=== PATIENT | male | born 1965 | race Caucasian/White ===

== ENCOUNTER → 2021-07-16 09:49 | Outpatient (BNVA) | payer OTHER, SELFPAY | PROVIDERS: Referring Provider Nurse Practitioner; Visit Provider Podiatrist Foot & Ankle Surgery | DX: M79.671 Pain in right foot (principal) | CPT/HCPCS: 73630 ==

== ENCOUNTER → 2021-08-22 10:28 | Outpatient (BNVA) | payer OTHER, SELFPAY | PROVIDERS: Visit Provider Surgery | DX: K22.70 Barrett's esophagus without dysplasia (principal); Z20.822 Contact with and (suspected) exposure to COVID-19 | CPT/HCPCS: 87635 ==

== ENCOUNTER 2021-08-27 08:21 | Day surgery (SDC) | payer OTHER, SELFPAY ==
[2021-08-22 12:45] VITALS: BMI 28.5
--- NOTE | 2021-08-27 09:10 | ANES.PREANE2 ---
Pre-Anesthetic Assessment Pre-Anesthetic Assessment: Height/Weight: Height 1.93 m Weight 106.594 kg Preop Diagnosis: persistent acid reflux Proposed Procedure: Operation Date: 08/27/21 09:00 Proposed Procedures p EGD 10981 K22.70(Not Applicable) - Lalo Machuca MD Was Beta Moni taken within 24 hours: N/A Was Clonidine taken within 24 hours: N/A Social: Social History: Alcohol and Tobacco Exam: Pre-Anes Outpt Exam: alert, oriented x 3 and regular rate & rhythm Airway: Submandibular: WNL Cervical ROM: WNL MP: 2 Dentition: Chipped Pulmonary: Pulmonary: COPD GI: GI: GERD Metabolic: Metabolic: Morbid obesity Anesthetic Plan: ASA status: 3 Anesthesia: MAC Risk of > 500 ml blood loss (7ml/kg in children): No PFSH Anesthesia PFSH: Family History Other Cancer Denies family history of Diabetes CAD (coronary artery disease) Dementia Psychiatric illness Lung disease Stroke Social History Alcohol intake: current Alcohol intake frequency: 3 or more drinks per day Lives independently: Yes Data Anesthesia Cardiac Studies: No Data to Display
[2021-08-27 09:26] VITALS: BP 156/87; PULSE 58; RESP 18; TEMP 36.2; O2SAT 98
[2021-08-27] MEDS: sodium chloride 0.9% 1,000 ML 30 ML IV (09:30)
--- NOTE | 2021-08-27 09:48 | W.PM.OPSFHP ---
Same Day Surgery H&P Indication for Procedure/HPI DATE OF PROCEDURE: August 27, 2021 CHIEF COMPLAINT/INDICATIONFOR SURGICAL PROCEDURE: Acid reflux PREOP DIAGNOSIS: persistent acid reflux PLANNED PROCEDRUE: Operation Date: 08/27/21 09:00 Proposed Procedures p EGD 43884 K22.70(Not Applicable) - Lalo Machuca MD This is a pleasant 55 years old gentleman with history of persistent acid reflux in spite of receiving 80 mg of omeprazole daily. Patient also receives ibuprofen for musculoskeletal pain. Apparently does not help with his acid reflux. Patient reports that he had history of Rodriguez's esophagitis and last endoscopy was done back and no biopsies were obtained per his description. Patient is referred to my practice for further evaluation and potential intervention in the form of repeat diagnostic EGD as he has been on PPI therapy for many years now 08/27/2021. Patient comes today for diagnostic EGD. ROS All systems have been reviewed negative except as per the above or per problem list. Medications/Allergies* Home Medications Medication Instructions Recorded Confirmed Type omeprazole 40 mg capsule,delayed 20 mg PO BID 07/07/21 08/27/21 History release ibuprofen 2,400 mg PO DAILY 08/27/21 08/27/21 History Allergies/Adverse Reactions Allergy/AdvReac Type Severity Reaction Status Date / Time No Known Allergies Allergy Unverified 07/08/21 12:27 Current Medications: Generic Name Dose Route Start Last Admin Trade Name Garretq PRN Reason Stop Dose Admin Sodium Chloride 1,000 mls @ 30 mls/hr 08/27/21 08:45 08/27/21 09:30 Sodium Chloride 0.9% IV 08/28/21 08:44 30 mls/hr .Q24H SONALI Administration Pertinent History/Comorbid Conditions* Family History (Updated 07/07/21 @ 15:17 by Sammi Marie) Cancer Denies family history of Diabetes CAD (coronary artery disease) Dementia Psychiatric illness Lung disease Stroke Social History Alcohol intake: current Alcohol intake frequency: 3 or more drinks per day Lives independently: Yes Pertinent Exam Findings alert, oriented x 3, clear to auscultation bilaterally, regular rate & rhythm and procedure specific exam findings (Abdominal examination nontender nondistended soft) Recommendations Surgery/Procedure today (EGD with possible biopsy) Coding Level of Care Code Acute Table Games Dual 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
[2021-08-27 10:03] VITALS: BP 126/74; PULSE 66; RESP 16; TEMP 36.4; O2SAT 96
[2021-08-27 10:14] VITALS: BP 122/91; PULSE 63; RESP 18; O2SAT 94
--- NOTE | 2021-08-27 10:39 | ANE.PACU2 ---
Inpatient post-anesthesia follow up: Airway intact: Yes Vital signs: Temperature 97.5 F Pulse Rate 63 Respiratory Rate 18 Blood Pressure 122/91 Pulse Oximetry 94 Oxygen Delivery Me thod Room Air Oxygen Flow Rate 3 Fraction of Inspir ed Oxygen Hydration adequate: Yes Mental status: Baseline
[2021-08-28 05:54] LABS: H. Pylori / CLO Test Negative
== END 2021-08-27 10:30 | disposition home or self-care (01) ==
PROVIDERS: Visit Provider Surgery
PROC: 0DJ08ZZ Inspection of Upper Intestinal Tract, Via Natural or Artificial Opening Endoscopic (ICD-10-PCS; CPT 43235; principal; 2021-08-27 09:00)
DX: K21.9 Gastro-esophageal reflux disease without esophagitis (principal); K29.70 Gastritis, unspecified, without bleeding; J44.9 Chronic obstructive pulmonary disease, unspecified; E66.01 Morbid (severe) obesity due to excess calories; Z68.28 Body mass index [BMI] 28.0-28.9, adult
CPT/HCPCS: 43239; 87077; 96360; J2704; J3490; J7030

== ENCOUNTER → 2022-06-12 08:54 | Outpatient (BNVA) | payer OTHER, SELFPAY | PROVIDERS: Referring Provider Nurse Practitioner; Visit Provider Orthopaedic Surgery | DX: M17.12 Unilateral primary osteoarthritis, left knee (principal) | CPT/HCPCS: 73560; 73565; 99203 ==

== ENCOUNTER 2022-07-28 15:30 | Outpatient (CLI) | payer OTHER, SELFPAY ==
--- NOTE | 2022-07-28 16:00 | CT_ITS ---
WS: [id number] CT LEFT knee, noncontrast. HISTORY: Preop NIKITA robotic total knee replacement. Osteoarthritis. Protocol for NIKITA total knee replacement has been obtained. This includes axial imaging through the s [place] side LEFT hip, LEFT knee and LEFT ankle. Very minimal narrowing of the LEFT hip joint. No destructive bone lesions. No soft tissue abnormality . Mild LEFT knee medial compartment joint space narrowing. Subchondral cystic changes medial tibial juanito teau. No loose body or fracture. Normal alignment of the LEFT ankle. No significant degenerative changes. CT/CT knee LT wo con* [id number] IMPRESSION: CT imaging provided for NIKITA robotic total knee replacement.
== END 2022-07-28 15:31 | disposition home or self-care (01) ==
LOC: RAD 15:31
PROVIDERS: PCP Nurse Practitioner; Visit Provider Orthopaedic Surgery
DX: M17.12 Unilateral primary osteoarthritis, left knee (principal)
CPT/HCPCS: 73700

== ENCOUNTER 2022-08-03 16:37 | Observation (INO) | payer OTHER, SELFPAY ==
[2022-07-21 09:17] VITALS: BMI 31.1
[2022-07-21 09:54] LABS: Basophils % 0.7 %; Eosinophils # 0.1 10^3/uL (0.0-0.8); Eosinophils % 3.3 %; Hemoglobin 14.5 g/dL (11.7-16.6); Lymphocytes # 1.2 10^3/uL (0.8-4.8); Lymphocytes % 28.8 %; Mean Corpuscular HGB Conc 35.4 g/dL (30.0-36.0); Mean Corpuscular Volume 93.4 fl (80-94); Mean Platelet Volume 11.3 fL (7.4-10.4); Monocytes # 0.4 10^3/uL (0.2-0.9); Monocytes % 8.3 %; Neutrophils # 2.47 10^3/uL (1.8-7.7); Neutrophils % 58.4 %; Nucleated Red Blood Cells % 0 %; Platelet Count 168 10^3/cmm (130-400); Red Blood Count 4.39 10^6/uL (4.1-5.3); Red Cell Distribution Width 12.9 % (12.1-15.1); White Blood Count 4.2 10^3/uL (4.0-10.0)
[2022-07-21 10:18] LABS: Anion Gap 13.2 (5-19); Blood Urea Nitrogen 14 mg/dL (6-20); Calcium 9.3 mg/dL (8.5-10.5); Carbon Dioxide 24 mmol/L (22-29); Chloride 100 mmol/L (98-107); Glomerular Filtration Rate 77.6 mL/min (90-130); Glucose 99 mg/dL (65-115); Osmolality Calculated 277 mOsm/kg (285-295); Potassium 4.2 mmol/L (3.5-5.1); Sodium 133 mmol/L (136-145)
--- NOTE | 2022-07-21 15:14 | ANES.PREANE2 ---
Pre-Anesthetic Assessment Height/Weight: Height 1.93 m Weight 116.12 kg Preop Diagnosis: Osteoarthritis Operation Date: 08/03/22 13:40 Proposed Procedures p Left total knee arthroplasty: 90664,M17.12(Left) - Aaron Ferraro MD Familial anesthetic complications: none Was Beta Moni taken within 24 hours: N/A Was Clonidine taken within 24 hours: N/A Social Tobacco and No alcohol Exam alert, oriented x 3, clear to auscultation bilaterally and regular rate & rhythm Airway Submandibular: within normal limits Cervical ROM: within normal limits Mallampati: Class II Dentition: full Comments: Comments: Pulmonary Shortness of Breath CV/HEM None reported None reported Hepatic None reported GI Gastroesophageal Reflux Disease (Well controlled with medications ) Rodriguez's esophagus Metabolic Obesity Musc/skel Osteoarthritis/DJD Neuropsych None reported Anesthetic Plan ASA status: 2 Anesthesia: Anesthesia Evaluation, General and Regional (specify below) (Adductor canal block ) Other: We discussed risk and benefits of general vs spinal anesthesia including DVT risk, infection, paralysis/catastrophic nerve injury, back bruising/pain, PDPH, conversion to general in case of spinal, PONV, sore throat (sometimes severe), corneal abrasion, positioning and peripheral nerve injuries, life threatening allergic reaction, post operative ICU admission requiring prolonged intubation, stroke, heart attack, , post operative delirium and/or post operative cognitive decline, and rare incidences of recall (under general anesthesia). We discussed risk and benefits of nerve block for post op pain control including management of pain and titration of pain medications as signs/symptoms of nerve block wearing off begin to appear and/or prior bed. We discussed risk of failed nerve block, vascular injury or other vital structure injury, abscess/infection, LAST, and nerve injury. Patient wishes to proceed with spinal with adductor canal block for post op pain control. Risk of > 500 ml blood loss (7ml/kg in children): No Medications/Allergies Home Medications Medication Instructions Recorded Confirmed Last Taken Type omeprazole 40 mg capsule,delayed 20 mg PO BID 07/07/21 07/21/22 08/26/21 History release custom molded orthotics #1 ea 07/22/21 06/12/22 Unknown Rx ibuprofen 1,600 mg PO DAILY 08/27/21 07/21/22 08/26/21 09:00 History Custom Molded Orthotics with Boots #1 ea 12/08/21 06/12/22 Unknown Rx cyanocobalamin (vitamin B-12) 1,000 mcg PO DAILY 07/21/22 07/21/22 Unknown History 1,000 mcg tablet (Vitamin B-12) thiamine HCl (vitamin B1) 100 mg 50 mg PO DAILY 07/21/22 07/21/22 Unknown History tablet (Vitamin B-1) Allergies Allergy/AdvReac Type Severity Reaction Status Date / Time No Known Allergies Allergy Verified 07/21/22 09:11 [facility] Anesthesia Medical History Rodriguez's esophagus with esophagitis Family History Other Cancer Denies family history of Diabetes CAD (coronary artery disease) Dementia Psychiatric illness Lung disease Stroke Social History Smoking and tobacco status: current every day smoker Alcohol intake: current Alcohol intake frequency: 3 or more drinks per day Lives independently: Yes Data Anesthesia : 07/21/22 09:30 07/21/22 09:30 Short CBC 07/21/22 Range/Units 09:30 WBC 4.2 (4.0-10.0) 10^3/uL Hgb 14.5 (11.7-16.6) g/dL Hct 41.0 L (42.0-52.0) % MCV 93.4 (80-94) fl Plt Count 168 (130-400) 10^3/cmm Neut % (Auto) 58.4 % Neut # (Auto) 2.47 (1.8-7.7) 10^3/uL BMP 07/21/22 09:30 Sodium 133 L Potassium 4.2 Chloride 100 Carbon Dioxide 24 BUN 14 Creatinine 1.0 Glucose 99 Calcium 9.3 Cardiac Studies: No Data to Display
[2022-08-03] VITALS (16 sets, daily range): BP systolic 137–164; BP diastolic 88–99; PULSE 68–87; RESP 14–21; TEMP 36.3–37.2; O2SAT 91–99; BMI 31.1
[2022-08-03] MEDS: sodium chloride 0.9% 1,000 ML 30 ML IV (10:03)
--- NOTE | 2022-08-03 10:47 | P.ANESUD_ITS ---
Pre-Anesthetic Update Pre-Anesthetic Assessment: Date of Surgery/Procedure: 08/03/22 Preop Kaitlyn gnosis: Osteoarthritis Proposed Procedure: Operation Date: 08/03/22 13:10 Proposed Procedures p Left total knee arthroplasty: 35934,M17.12(Left) - Aaron Ferraro MD Any changes to Pre-Anesthetic Assessment?: No Last Intake: Intake Last Liquid Date 08/02/22 Last Liquid Time 21:30 Last Solid Date 08/02/22 Last Solid Time 18:00 Vitals: Temperature 98.3 F 08/03/22 09:49 Temperature Source Temporal Artery S can 08/03/22 09:49 Pulse Rate 79 08/03/22 09:49 Pulse Rhythm 08/03/22 10:00 Pulse Strength 3+ Normal 08/03/22 10:00 Respiratory Rate 18 08/03/22 09:49 Blood Pressure 164/99 08/03/22 09:49 Blood Pressure Heydi n 120 08/03/22 09:49 Pulse Oximetry 96 08/03/22 09:49 Oxygen Delivery Me thod 08/03/22 10:00 Exam: Pre-Anes Outpt Exam: alert, oriented x 3, clear to auscultation bilaterally and regular rate & rhythm Cardiac Studies: No Data to Display
--- NOTE | 2022-08-03 12:33 | ANES.PROC ---
Anesthesia Procedures Procedure/Date: 08/03/22 Nerve Block ^: Nerve Block 1: Main Anesthesia: general anesthesia Time Out Performed: Yes Consent: requested by attending/covering physician, from patient, risks and benefits reviewed and patient agrees to proceed Nerve block location: adductor canal Anesthesia monitors applied: pulse oximetry and BP cuff Nerve block position: semi sitting Anesthetic Used: ropivicaine 0.5% Amount of anesthesia used (mL): 20 Ultrasound used to: recognize landmarks and visualize and ID femerol nerve Nerve Stimulator Used?: No Interscalene/Femoral BLK: 4 stimuplex 21 g needle used for position and inplane approach, visualize local anesthetic spread and no vascular puncture identified Injection: neg aspiration of heme Patient Tolerated Procedure: well Complications: none Additional Comments: After time out sterile prep, using sterile technique, and using real time US guidance for target selection needle was inserted with real time visualization of needle entry and real time visualization of needle advancement toward intended target. Negative aspiration. LA injected incrementally with negative aspiration every 5 cc and real time US visualization of LA spread throughout procedure. Tolerated well. Image(s) saved.
--- NOTE | 2022-08-03 12:33 | W.PM.OPSFHP ---
Same Day Surgery H&P Indication for Procedure/HPI DATE OF PROCEDURE: August 03, 2022 CHIEF COMPLAINT/INDICATIONFOR SURGICAL PROCEDURE: Osteoarthritis left knee here for left total knee arthroplasty PREOP DIAGNOSIS: Osteoarthritis left knee PLANNED PROCEDURE: Operation Date: 08/03/22 13:10 Proposed Procedures p Left total knee arthroplasty: 45246,M17.12(Left) - Aaron Ferraro MD This is a new 56 year old male patient, he is here today for an evaluation of his left knee pain. He states that he has had pain to his left knee for 4 years now. He states tat he had ankle surgery to his right side and states that his left knee got increasingly worse.? At that time he began to notice pain and popping with nothing was really done.? He states the pain is steadily progressed over the past 4 years.? He states that he has tried a cortisone injection that provided him with mild relief.? He is taking 2400 mg of ibuprofen daily and applying a Voltaren gel rub without help.? He describes severe swelling 6 weeks ago which has not improved but is not completely gone.? He describes the pain worse some days than others.? He has been wearing an flight software test engineer brace and states with that he can perhaps ambulate a block on a good day.? He states without the brace and even with the brace on some days he can scarcely ambulate at all. Medications/Allergies* Home Medications Medication Instructions Recorded Confirmed Type omeprazole 40 mg capsule,delayed 20 mg PO BID 07/07/21 08/03/22 History release ibuprofen 1,600 mg PO DAILY 08/27/21 08/03/22 History cyanocobalamin (vitamin B-12) 1,000 mcg PO DAILY 07/21/22 08/03/22 History 1,000 mcg tablet (Vitamin B-12) thiamine HCl (vitamin B1) 100 mg 50 mg PO DAILY 07/21/22 08/03/22 History tablet (Vitamin B-1) Allergies/Adverse Reactions Allergy/AdvReac Type Severity Reaction Status Date / Time No Known Allergies Allergy Verified 07/21/22 09:11 Current Medications: Generic Name Dose Route Start Last Admin Trade Name Freq PRN Reason Stop Dose Admin Sodium Chloride 1,000 mls @ 30 mls/hr 08/03/22 09:45 08/03/22 10:03 Sodium Chloride 0.9% IV 08/04/22 09:44 30 mls/hr .Q24H SONALI Administration Pertinent History/Comorbid Conditions* Medical History (Updated 06/12/22 @ 09:32 by Aaron Ferraro MD) Rodriguez's esophagus with esophagitis Family History (Updated 07/07/21 @ 15:17 by Sammi Marie) Cancer Denies family history of Diabetes CAD (coronary artery disease) Dementia Psychiatric illness Lung disease Stroke Social History Smoking and tobacco status: current every day smoker Alcohol intake: current Alcohol intake frequency: 3 or more drinks per day Lives independently: Yes Pertinent Exam Findings alert, oriented x 3, clear to auscultation bilaterally, regular rate & rhythm and operative site marked Recommendations Surgery/Procedure today Coding Level of Care Code Acute 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
[2022-08-03] MEDS: CELEcoxib 200 mg Capsule 400 MG PO (12:52)
[2022-08-03] MEDS: acetaminophen 500 mg Tablet 1000 MG PO ×2 (12:52→22:18)
[2022-08-03] MEDS: oxyCODONE 20 mg ER (12 HR) Tablet PO (12:53)
[2022-08-03] MEDS: ceFAZolin 2,000 MG in sodium chloride 0.9% (plus) 50 ML 100 MG IV ×2 (13:19→22:20)
[2022-08-03] MEDS: tranexamic acid 1,000 mg/10mL SDV 1000 MG IV (13:40)
[2022-08-03] MEDS: sodium chloride 0.9% 100 mL Bag XX (14:10)
[2022-08-03] MEDS: ketorolac 30 mg/mL INJ XX (14:13)
[2022-08-03] MEDS: EPINEPHrine 1 mg/mL INJ XX (14:13)
[2022-08-03] MEDS: tranexamic acid 1,000 mg/10mL SDV 1000 MG XX (14:14)
--- NOTE | 2022-08-03 16:08 | XR_ITS ---
WS: [id number] [place] [id number] REASON FOR EXAM: Left total knee arthroplasty FINDINGS: Total left knee arthroplasty. Components of the prosthesis are in proper position and alignment. No focal bony abnormality. XR/[place] [id number] IMPRESSION: Total left knee arthroplasty without abnormality.
--- NOTE | 2022-08-03 16:08 | P.OP_ITS ---
Operative Report Date of procedure: August 03, 2022 Pre-op diagnosis: Preop Diagnosis Osteoarthritis left knee Post-op diagnosis: same Post-op diagnosis: Same Post-op findings: Same Procedure done: [] total knee arthroplasty Implants: Chuy Triathalon total knee arthroplasty components were used includin) Size 6 triathalon cruciate retaining femoral component 2) Size 7 Tritanium tibial component 3) Size 7/9 mm thickness CS tibial bearing insert Pathology: none sent Surgeon: Aaron Ferraro Anesthesia: Nerve Block (Spinal, adductor canal block) Estimated blood loss (mL): 250 Findings: The patient eburnated bone over the medial femoral condyle, lateral femoral condyle and medial tibial plateau. There was minimal patellar intra-articular chondromalacia Condition: stable Disposition: PACU Procedure: The patient was taken to the operating room. Patient was given 1 g of tranexamic acid . The above anesthesia provided by the anesthesia service. A timeout was performed. The patient was prepped and draped in the usual fashion with the lower extremity exposed. A anterior incision was made, midline, from a point proximal to the patella to the distal tibial tubercle. The knee was entered through a medial parapatellar approach. The patella could be displaced laterally and the knee flexed. The patellar fat pad was resected to provide better visibility. Retractors were placed medially and laterally adjacent to the tibial plateau. At a point approximately 8 cm above the patella, 2 small incisions were made with a scalpel blade and 2 long threaded pins were placed into the anterior medial femur engaging both cortices. The femoral arrays were placed over these pins and secured. At a point 8 cm distal to the tibial tubercle. 2 shorter threaded pins were placed and the tibial arrays placed. A checkpoint was made just proximal and medial to the medial femoral condyle and just medial to the tibial plateau. Small osteotomes were placed in the joint in both flexion and extension. To accommodate increased lateral joint space in extension and flexion the tibia was cut in 2 degrees of varus and the femur slightly ex ternally rotated and distal eyes.. The [employer] robot was then introduced to the field and the femur and tibia cut in accordance with our plan. he Luke and Nephew cautery was then used to provide hemostasis, particularly about the posterior capsule. A trial with the above components provided excellent stability and full range of motion. The femur was then prepared for the femoral pegs of the component in the tibia for the tibial component. The femur and tibia were then press-fit into place. A neurectomy was accomplished circumferentially about the patella with electrocautery. Surfaces were cleaned with a gentamicin solution. The femur and tibia were then press-fit into place. The posterior capsule and collateral ligaments were then injected with a solution of 100 mL of 0.2% ropivacaine, 1 mL of a 1:1000 epinephrine solution, 30 mg of Toradol, and 1 g of tranexamic acid. Final polyethylene component was then snapped into place into the tibia. The extensor retinaculum was closed with a running 1 Stratafix interrupted 1 Ethibond. The subcutaneous tissues were closed with 2-0 Vicryl and the skin was closed with a running 4-0 Stratafix. The wound was covered with a Dermabond Prineo dressing. It was covered with 4xrs and a compressive Tubigauze was applied. The patient was taken to recovery room in stable condition.
--- NOTE | 2022-08-03 16:22 | SUR.PHASEI ---
1554 PT TO PACU 5 PT AWAKE ALERT TALKATIVE , ISLAND DRESSING AND STOCKINETTE TO LT KNEE D/I DISTAL FOOT PINK WARM WITH STRONG AND REGULAR PULSE MARKED FIRST ICE TO SITE. IV TO LT FOREARM#20 WITH NS 200ML UP AT KVO RATE. BILAT FOOT PUMPS ON . PT ID TO LT WRIST PT ID'D WITH 2 IDENTIFIERS. 1630 PT AWAKE ALERT RATES PAIN AT 3 PT STATES (JUST A LITTLE BIT OF PAIN ABOUT A 3 ON 1/10 SCALE) PT REFUSED PAIN MEDS AT THIS TIME, FIRST ICE TO KNEE DISTAL PULSE STRONG AND REGULAR, DRESSING D/I
--- NOTE | 2022-08-03 17:10 | SUR.PHASEI ---
PT TO FLOOR PER BED PT AWAKE ALERT DR MARTINEZ HERE AND CALLED FAMILY, PT HAS HIS CELL PHONE AND WILL CALL FROM HIS ROOM [id number], PT TO ROOM HANDOFF TO JOVANNI SANTIAGO AT BEDSIDE. PT ALERT UP IN BED SIPPING COFFEE, DRESSING UNCHANGED PULSE STRONG AND REGULAR. PT BAGS X 2 TO FLOOR WITH PT.
--- NOTE | 2022-08-03 17:23 | ANE.PACU2 ---
Inpatient post-anesthesia follow up: Airway intact: Yes Vital signs: Temperature 98.9 F Pulse Rate 68 Respiratory Rate 18 Blood Pressure 152/91 Pulse Oximetry 95 Oxygen Delivery Me thod Room Air Oxygen Flow Rate 8 Fraction of Inspir ed Oxygen Hydration adequate: Yes Nausea and vomiting: No Pain level: 3 Mental status: Baseline
[2022-08-03] MEDS: oxyCODONE 5 mg IR Tab/Cap PO ×2 (17:59→22:56)
[2022-08-03] MEDS: pantoprazole DR 40 mg Tablet PO (18:03)
[2022-08-03] MEDS: sodium chloride 0.9% 1,000 ML 100 ML IV (18:03)
[2022-08-03] MEDS: gabapentin 300 mg Capsule PO (18:03)
[2022-08-03] MEDS: CELEcoxib 200 mg Capsule PO (22:45)
[2022-08-04] VITALS (8 sets, daily range): BP systolic 124–137; BP diastolic 80–86; PULSE 67–72; RESP 16–20; TEMP 36.4–37.2; O2SAT 89–96
[2022-08-04 02:55] LABS: Hemoglobin 13.5 g/dL (11.7-16.6)
[2022-08-04] MEDS: oxyCODONE 5 mg IR Tab/Cap PO ×3 (03:25→13:19)
[2022-08-04] MEDS: acetaminophen 500 mg Tablet 1000 MG PO ×2 (05:51→13:19)
[2022-08-04] MEDS: ceFAZolin 2,000 MG in sodium chloride 0.9% (plus) 50 ML 100 MG IV ×2 (05:51→13:19)
[2022-08-04] MEDS: sodium chloride 0.9% 1,000 ML 100 ML IV (05:52)
[2022-08-04] MEDS: aspirin 325 mg EC Tablet PO (08:52)
[2022-08-04] MEDS: gabapentin 300 mg Capsule PO (08:52)
[2022-08-04] MEDS: pantoprazole DR 40 mg Tablet PO (08:52)
[2022-08-04] MEDS: CELEcoxib 200 mg Capsule PO (10:43)
--- NOTE | 2022-08-04 11:00 | PC.CHAP ---
Pastoral Care Encounter/Spiritual Assessment Type of Contact [] Declined etl consultant visit [] Patient/Family/Request visit [] Outpatient visit [] Follow-up visit [] Physician referral [] Code/Alert [x] Routine visit [] Staff referral [] Actively dying [] Patient sleeping [] Family support [] [] Out of room [] Palliative care [] [] Receiving care in room [] Pre-surgical visit [] Trauma [] Long length of stay [] ICU visit [] Other: Relational/Emotional Strength [x] Patient feels connected with others/family/visitors/staff [] Distress [] Loneliness/isolation [] Abandonment Spirituality of Patient [x] Person of Silvia [] Attends Restoration of their Silvia [x] Believes in Prayer [] Reads Bible or Anglican materials [] There are Spiritual issues to be addressed Law Examiner Interventions [x] Prayer [x] Active listening [] Non-anxious presence []x Spiritual/emotional support [] Crisis/trauma care [] Spiritual counseling [] Bereavement support [] Provided bereavement packet [] Provided Bible/devotional materials [] Provided toy/stuffed animal, coloring book to patient or family member [] Provided Communion [] Anointing/[place] [] Salvation [x] Completed spiritual assessment [] Other: Impact on Illness or Injury [] Angry [] Fearful [] Anxious [] Often cries [] Exhaustion [] Unable to work [] Unable to attend mu-ism [] Unable to walk/stand [] Unable to read [] Unable to drive [] Unable to eat/drink [] Unable to sleep [] Unable to be with family [] Patient intubated [] Other: Summary Time spent with patient 10 min
--- NOTE | 2022-08-04 12:46 | P.DS_ITS ---
Discharge Providers Date of Admission: 08/03/22 16:37 Date of Discharge: August 04, 2022 Attending Provider at Admission: Aaron Ferraro MD Attending Provider at Discharge: Aaron Ferraro MD Primary Care Provider: JANEY Sheppard Diagnoses at Discharge Discharge Diagnosis (1) Status post left knee replacement: Status: Acute (2) Osteoarthritis of left knee: Status: Resolved Reason for Visit Reason for Visit: unilateral primary osteoarthritis , left knee Hospital Course Hospital Course The patient tolerated surgery well. They remained hemodynamically stable. They was begun on aspirin and Kytril compression dressings for DVT prophylaxis. The patient was mobilized with therapy beginning the day of surgery and by the first postoperative day independent with the walker. As the pain was adequately con trolled and they were fully mobile they were discharged home. Physical Exam Narrative: On the day of discharge the knee incision was clean. They had no drainage. There is minimal swelling in the thigh and knee and the calf. No distal neurovascular deficits were noted Discharge Data Studies Completed and Pending Completed Studies During Hospitalization Category Date Time Status XR knee LT 1-2V [id number] Routine Exams 08/03/22 16:08 Completed Radiology Impressions Knee X-Ray 08/03/22 16:08 IMPRESSION: Total left knee arthroplasty without abnormality. Laboratory Results WBC 4.2 10^3/uL (4.0-10.0) 07/21/22 09:30 RBC 4.39 10^6/uL (4.1-5.3) 07/21/22 09:30 Hgb 13.5 g/dL (11.7-16.6) 08/04/22 02:06 Hct 41.0 % (42.0-52.0) L 07/21/22 09:30 MCV 93.4 fl (80-94) 07/21/22 09:30 MCH 33.0 pg (28.0-34.0) 07/21/22 09:30 MCHC 35.4 g/dL (30.0-36.0) 07/21/22 09:30 RDW 12.9 % (12.1-15.1) 07/21/22 09:30 Plt Count 168 10^3/cmm (130-400) 07/21/22 09:30 MPV 11.3 fL (7.4-10.4) H 07/21/22 09:30 Neut % (Auto) 58.4 % 07/21/22 09:30 Lymph % (Auto) 28.8 % 07/21/22 09:30 [place] % (Auto) 8.3 % 07/21/22 09:30 Eos % (Auto) 3.3 % 07/21/22 09:30 Baso % (Auto) 0.7 % 07/21/22 09:30 Neut # (Auto) 2.47 10^3/uL (1.8-7.7) 07/21/22 09:30 Lymph # (Auto) 1.2 10^3/uL (0.8-4.8) 07/21/22 09:30 [place] # (Auto) 0.4 10^3/uL (0.2-0.9) 07/21/22 09:30 Eos # (Auto) 0.1 10^3/uL (0.0-0.8) 07/21/22 09:30 Baso # (Auto) 0.0 10^3/uL (0.0-0.1) 07/21/22 09:30 Nucleated RBC % (auto) 0 % 07/21/22 09:30 Nucleated RBCs # 0.0 /100WBC 07/21/22 09:30 Sodium 133 mmol/L (136-145) L 07/21/22 09:30 Potassium 4.2 mmol/L (3.5-5.1) 07/21/22 09:30 Chloride 100 mmol/L (98-107) 07/21/22 09:30 Carbon Dioxide 24 mmol/L (22-29) 07/21/22 09:30 Anion Gap 13.2 (5-19) 07/21/22 09:30 BUN 14 mg/dL (6-20) 07/21/22 09:30 Creatinine 1.0 mg/dL (0.7-1.2) 07/21/22 09:30 GFR Calculation 77.6 mL/min (90-130) L 07/21/22 09:30 Glucose 99 mg/dL (65-115) 07/21/22 09:30 Calculated Osmolality 277 mOsm/kg (285-295) L 07/21/22 09:30 Calcium 9.3 mg/dL (8.5-10.5) 07/21/22 09:30 Vitals Last Vital Signs Temp 98.9 F 08/04/22 11:41 Pulse 67 08/04/22 11:41 Resp 18 08/04/22 11:41 BP 137/80 08/04/22 11:41 Pulse Ox 96 08/04/22 11:41 O2 Del Method 08/04/22 11:41 O2 Flow Rate 8 08/03/22 20:00 Discharge Plan Discharge Patient Disposition: Home Condition: Stable Prescriptions: New oxycodone 5 mg Tablet 5 mg PO Q4H PRN (Reason: Moderate Pain) 7 Days Qty: 30 0RF gabapentin 300 mg Capsule 300 mg PO BID 7 Days Qty: 14 0RF acetaminophen 500 mg Tablet 1,000 mg PO Q8H 14 Days Qty: 84 0RF aspirin 325 mg Tablet,Delayed Release (Dr/Ec) 325 mg PO DAILY 30 Days Qty: 30 0RF celecoxib 200 mg Capsule 200 mg PO Q12H 14 Days Qty: 28 0RF Continued (DME) Custom Molded Orthotics with Boots See Rx Instructions .Route .MEDSUPPLY Qty: 1 0RF Rx Instructions: As directed J P & O omeprazole 40 mg capsule,delayed release(DR/EC) 40 mg PO BID (DME) custom molded orthotics See Rx Instructions .Route .MEDSUPPLY Qty: 1 0RF Rx Instructions: As directed By DANYELLE&O cyanocobalamin (vitamin B-12) [Vitamin B-12] 1,000 mcg Tablet 1,000 mcg PO DAILY thiamine HCl (vitamin B1) [Vitamin B-1] 100 mg Tablet 100 mg PO DAILY montelukast 10 mg Tablet 10 mg PO QPM rosuvastatin 20 mg Tablet 10 mg PO QPM diclofenac sodium 1 % Gel 4 g TOPICAL QID PRN (Reason: Pain) Rx Instructions: apply to single knee, ankle, foot; for foot includes sole/toes/top of foot Discontinued ibuprofen 800 mg Tablet 800 mg PO BID PRN (Reason: Pain) Discharge Orders: Discharge Order (Routine); Ordered 08/04/22 Ordered By: Aaron Ferraro Other Ambulatory Orders: DME: Walker (Order) Location: None Selected Ordered By: Aaron Ferraro Referrals: Aiden Wang FNP [Physician Heater Helper] - 08/07/22 9:30 am Discharge Activity: Limit activity as instructed Patient Instructions: Opioid Safety Activity Restrictions/Additional Instructions: Okay to shower Keep Tubigauze sleeve in place for swelling. Okay to remove for hygiene. Apply FirstIce up to 20 min/hr for pain and swelling Take Celebrex twice a day for the next 15 days for pain , discontinue other anti-inflammatories Take Neurontin twice a day for 7 days. Take Tylenol 500mg (2 tabs) as needed 3 times a day for mild pain take oxycodone for breakthrough pain. Exercises per physical therapy. May weight-bear as tolerated on total knee arthroplasty IF HAVE ANY PROBLEMS OR QUESTIONS CALL HOSPITAL TOUR COORDINATOR AT AND ASK TO HAVE DR. MICHELLE FAGAN. Discharge Attestations Time Spent in Discharge Care*: other Quality Metrics Clinical Quality Measures [ No reported AMI, CVA or VTE this stay] Coding Level of Care Code Acute [facility] FW HI note Diagnoses Status post left knee replacement Z96.652 Osteoarthritis of left knee M17.12
== END 2022-08-04 14:30 | disposition home or self-care (01) ==
LOC: MEDSURG 16:37
PROVIDERS: Anesthesiology; Admitting Provider Orthopaedic Surgery; PCP Nurse Practitioner; Visit Provider Orthopaedic Surgery
PROC: (CPT 27447; principal; 2022-08-03 13:10)
DX: M17.12 Unilateral primary osteoarthritis, left knee (principal); K21.9 Gastro-esophageal reflux disease without esophagitis; E66.9 Obesity, unspecified; Z68.31 Body mass index [BMI] 31.0-31.9, adult; F17.200 Nicotine dependence, unspecified, uncomplicated
CPT/HCPCS: 27447; 36415; 73560; 80048; 85018; 85025; 97110; 97116; 97161; 97165; C1776; G0378; J0171; J1100; J1170; J1580; J1885; J2405; J2704; J2795; J3010; J3490; J7030

== ENCOUNTER → 2022-08-07 09:21 | Outpatient (BNVA) | payer OTHER, SELFPAY | PROVIDERS: PCP Nurse Practitioner; Visit Provider Nurse Practitioner Family | DX: Z96.652 Presence of left artificial knee joint (principal) | CPT/HCPCS: 99024 ==

== ENCOUNTER → 2022-08-28 08:01 | Outpatient (BNVA) | payer OTHER, SELFPAY | PROVIDERS: PCP Nurse Practitioner; Visit Provider Nurse Practitioner Family | DX: Z47.1 Aftercare following joint replacement surgery (principal); Z96.652 Presence of left artificial knee joint | CPT/HCPCS: 73560; 73565; 99024 ==

== ENCOUNTER → 2022-12-02 08:03 | Outpatient (BNVA) | payer OTHER, SELFPAY | PROVIDERS: PCP Nurse Practitioner; Visit Provider Nurse Practitioner Family | DX: Z96.652 Presence of left artificial knee joint (principal); M17.12 Unilateral primary osteoarthritis, left knee | CPT/HCPCS: 73560; 73565; 99213 ==

== ENCOUNTER → 2022-12-07 08:00 | Outpatient (BNVA) | payer OTHER, SELFPAY | PROVIDERS: PCP Nurse Practitioner; Visit Provider Podiatrist Foot & Ankle Surgery | DX: L84 Corns and callosities (principal); M20.41 Other hammer toe(s) (acquired), right foot; M20.42 Other hammer toe(s) (acquired), left foot; S86.011S Strain of right Achilles tendon, sequela; M21.6X1 Other acquired deformities of right foot; X58.XXXS Exposure to other specified factors, sequela | CPT/HCPCS: 99214 ==

== ENCOUNTER → 2023-04-22 08:39 | Outpatient (BNVA) | payer OTHER, SELFPAY | PROVIDERS: PCP Nurse Practitioner; Visit Provider Nurse Practitioner Family | DX: L73.2 Hidradenitis suppurativa (principal); L72.11 Pilar cyst; L85.3 Xerosis cutis; L81.4 Other melanin hyperpigmentation; D22.5 Melanocytic nevi of trunk; Z71.89 Other specified counseling | CPT/HCPCS: 99214 ==

== ENCOUNTER → 2023-08-04 08:02 | Outpatient (BNVA) | payer OTHER, SELFPAY | PROVIDERS: PCP Nurse Practitioner; Visit Provider Nurse Practitioner Family | DX: Z98.890 Other specified postprocedural states (principal); Z96.652 Presence of left artificial knee joint | CPT/HCPCS: 73560; 73565; 99213 ==

== ENCOUNTER → 2023-11-09 07:55 | Outpatient (BNVA) | payer OTHER, SELFPAY | PROVIDERS: PCP Nurse Practitioner; Visit Provider Nurse Practitioner Family | DX: L73.2 Hidradenitis suppurativa (principal); L81.4 Other melanin hyperpigmentation; D22.5 Melanocytic nevi of trunk; L57.8 Other skin changes due to chronic exposure to nonionizing radiation; L57.0 Actinic keratosis | CPT/HCPCS: 17000; 99214 ==

== ENCOUNTER → 2023-12-28 07:56 | Outpatient (BNVA) | payer OTHER, SELFPAY | PROVIDERS: PCP Nurse Practitioner; Visit Provider Podiatrist Foot & Ankle Surgery | DX: M20.41 Other hammer toe(s) (acquired), right foot (principal); M20.42 Other hammer toe(s) (acquired), left foot; L84 Corns and callosities; S86.011S Strain of right Achilles tendon, sequela; X58.XXXS Exposure to other specified factors, sequela | CPT/HCPCS: 99213 ==

== ENCOUNTER → 2024-03-20 15:17 | Outpatient (BNVA) | payer OTHER, SELFPAY | PROVIDERS: PCP Nurse Practitioner; Visit Provider Podiatrist Foot & Ankle Surgery | DX: M20.41 Other hammer toe(s) (acquired), right foot; M20.42 Other hammer toe(s) (acquired), left foot; M21.6X1 Other acquired deformities of right foot; S86.011S Strain of right Achilles tendon, sequela; X58.XXXS Exposure to other specified factors, sequela | CPT/HCPCS: 73610; 99213 ==

== ENCOUNTER → 2024-11-29 08:39 | Outpatient (BNVA) | payer OTHER, SELFPAY | PROVIDERS: PCP Nurse Practitioner; Visit Provider Specialist | DX: M25.561 Pain in right knee (principal); M17.0 Bilateral primary osteoarthritis of knee; Z96.652 Presence of left artificial knee joint | CPT/HCPCS: 73560; 73565 ==

== ENCOUNTER 2024-11-29 15:03 | Outpatient (CLI) | payer OTHER, SELFPAY | END 2024-11-29 15:04 | disposition home or self-care (01) | LOC: SPT 15:03 | PROVIDERS: PCP Nurse Practitioner; Visit Provider Specialist | DX: Z46.89 Encounter for fitting and adjustment of other specified devices (principal); M17.11 Unilateral primary osteoarthritis, right knee | CPT/HCPCS: 97760; L1851 ==

== ENCOUNTER → 2025-01-01 08:19 | Outpatient (BNVA) | payer OTHER, SELFPAY | PROVIDERS: PCP Nurse Practitioner; Visit Provider Podiatrist Foot & Ankle Surgery | DX: M20.41 Other hammer toe(s) (acquired), right foot (principal); M20.42 Other hammer toe(s) (acquired), left foot; M21.6X9 Other acquired deformities of unspecified foot; M21.6X1 Other acquired deformities of right foot; M21.6X2 Other acquired deformities of left foot | CPT/HCPCS: 99213 ==

== ENCOUNTER → 2025-06-18 07:54 | Outpatient (BNVA) | payer OTHER, SELFPAY | PROVIDERS: PCP Nurse Practitioner; Visit Provider Nurse Practitioner | DX: M75.21 Bicipital tendinitis, right shoulder (principal); M19.011 Primary osteoarthritis, right shoulder | CPT/HCPCS: 73030; 99214 ==

== ENCOUNTER → 2025-07-16 07:58 | Outpatient (BNVA) | payer OTHER, SELFPAY | PROVIDERS: PCP Nurse Practitioner; Visit Provider Nurse Practitioner | DX: M75.21 Bicipital tendinitis, right shoulder (principal); M19.011 Primary osteoarthritis, right shoulder | CPT/HCPCS: 99213 ==

== ENCOUNTER → 2025-07-26 08:17 | Outpatient (BNVA) | payer OTHER, SELFPAY | PROVIDERS: PCP Nurse Practitioner; Visit Provider Nurse Practitioner Family | DX: L73.2 Hidradenitis suppurativa (principal); L81.4 Other melanin hyperpigmentation; L57.8 Other skin changes due to chronic exposure to nonionizing radiation; L72.0 Epidermal cyst; L57.0 Actinic keratosis | CPT/HCPCS: 17000; 99214 ==

== ENCOUNTER → 2025-10-01 08:31 | Outpatient (BNVA) | payer OTHER, SELFPAY | PROVIDERS: PCP Nurse Practitioner; Visit Provider Podiatrist Foot & Ankle Surgery | DX: M20.41 Other hammer toe(s) (acquired), right foot (principal); M20.42 Other hammer toe(s) (acquired), left foot; M21.6X1 Other acquired deformities of right foot; M76.821 Posterior tibial tendinitis, right leg | CPT/HCPCS: 99213 ==

== ENCOUNTER 2025-10-23 11:36 | Emergency (ER) | payer OTHER, SELFPAY ==
[2025-10-23 11:48] VITALS: BP 188/97; PULSE 75; RESP 18; TEMP 36.4; O2SAT 96; BMI 35.3
[2025-10-23 11:55] VITALS: BP 146/98; PULSE 75; RESP 16; O2SAT 97
[2025-10-23 12:25] LABS: Hematocrit 40.1 % (37-53); Hemoglobin 13.70 g/dL (11.27-16.99); Mean Corpuscular HGB Conc 34.2 g/dL (30-55); Mean Corpuscular Hemoglobin 31.4 pg (27-33); Mean Corpuscular Volume 92.0 fl (82-101); Nucleated Red Blood Cells % 0 %; Platelet Count 207 10^3/cmm (157-399); Red Blood Count 4.36 10^6/uL (3.85-5.65); White Blood Count 5.67 10^3/uL (3.29-11.43)
[2025-10-23 12:30] VITALS: BP 146/98; PULSE 76; O2SAT 94
--- NOTE | 2025-10-23 12:41 | W.ED.SKABFB ---
HPI - Skin/Abscess/Foreign Bdy General: Chief complaint: Skin/Abscess/Foreign Body Stated complaint: [facility] Time Seen by Provider: 10/23/25 11:58 History of Present Illness: 60-year-old male presents emergency room with an open wound that is been draining the last couple of days. It began 5 days ago spontaneously opened and drained and now he has a defect in the axilla. Patient has a history of suppurative hidradenitis. He is on topical clindamycin. He has not been on any anti-inflammatory therapies in the past. Most recently has been using [id number] topical antibiotic on the wound. Associated symptoms: Deny chills or fever(s) Related Data Home Medications ?Medication ?Instructions ?Recorded ?Confirmed omeprazole 40 mg capsule,delayed 40 mg PO BID 07/07/21 10/01/25 release cyanocobalamin (vitamin B-12) 1,000 mcg PO DAILY 07/21/22 10/01/25 1,000 mcg tablet (Vitamin B-12) thiamine HCl (vitamin B1) 100 mg 100 mg PO DAILY 07/21/22 10/01/25 tablet (Vitamin B-1) montelukast 10 mg tablet 10 mg PO QPM 08/04/22 10/01/25 rosuvastatin 20 mg tablet 10 mg PO QPM 08/04/22 10/01/25 Previous Rx's ?Medication ?Instructions ?Recorded Custom Molded Orthotics with Boots #1 ea 12/08/21 clindamycin phosphate 1 % lotion 1 applic topical DAILY #60 mL 12/08/22 medial brick unloader tender brace, right #1 ea 11/29/24 2 pair of 511 Tactical Boots #1 ea 01/01/25 2 pair of custom accommodative #1 ea 01/01/25 insoles diclofenac sodium 1 % topical gel 4 g topical QID #100 grams 06/18/25 (Voltaren Arthritis Pain) meloxicam 15 mg tablet 15 mg PO DAILY #30 tabs 06/18/25 Held on 10/01/25. Instructions: Order Change capsaicin 0.1 % topical cream 1 applic topical DAILY #60 grams 10/01/25 (Capzasin-HP) gloves #1 ea 10/01/25 prednisone 10 mg tablet 10 mg PO DAILY #42 tabs 10/01/25 chlorhexidine 2 %-isopropyl 30 ml topical DAILY #262.5 mL 10/23/25 alcohol 70 % topical solution (ChloraPrep Clear) clindamycin phosphate 1 % topical 1 applic topical DAILY #75 mL 10/23/25 gel, once daily Allergies Allergy/AdvReac Type Severity Reaction Status Date / Time No Known Allergies Allergy Verified 10/23/25 11:55 Review of Systems Const: Denies: fever(s) or chills Card: Denies: chest pain Resp: Denies: dyspnea GI: Denies: abdominal pain : Denies: dysuria, urinary frequency or urinary urgency Musc: Denies: neck pain or back pain Skin/Breast: Denies: rash PFSH ED PFSH: Medical History GERD (gastroesophageal reflux disease) PTSD (post-traumatic stress disorder) Hyperlipidemia Obstructive sleep apnea HTN (hypertension) Bilateral tinnitus Erectile dysfunction Solitary lung nodule Vitamin B12 deficiency Cervical disc disorder Hiatal hernia Barretts esophagus Gastritis Rodriguez's esophagus with esophagitis Surgical History History of ankle surgery rt 2018 History of elbow surgery lt 2007 History of neck surgery 2020 History of esophagogastroduodenoscopy 2019 History of colonoscopy with polypectomy 2019 Family History Other Cancer Denies family history of Diabetes CAD (coronary artery disease) Dementia Psychiatric illness Lung disease Stroke Social History Smoking and tobacco/nicotine status: never used tobacco/nicotine Alcohol intake: current Alcohol intake frequency: 3 or more drinks per day Substance/Drug Use: never Lives independently: Yes Physical Exam Const: COMMON NORMALS: no acute distress GENERAL APPEARANCE: cooperative and comfortable ORIENTATION/CONSCIOUSNESS: Yes awake, Yes oriented to person, Yes oriented to place and Yes oriented to time HENMT: COMMON NORMALS: normocephalic, atraumatic and hearing grossly normal bilaterally HEAD & SCALP: normocephalic and atraumatic Resp: COMMON NORMALS: normal respiratory effort, No retractions, No use of accessory muscles and clear to auscultation bilaterally AUSCULTATION: clear to auscultation bilaterally Cardio: COMMON NORMALS: regular rate, regular rhythm and No murmurs present (Cardio) RATE: regular rate RHYTHM: regular rhythm GI: COMMON NORMALS: Soft to palpation and No hepatosplenomegaly present AUSCULTATION: Yes normoactive bowel sounds PALPATION: Yes Soft to palpation, No Tenderness to palpation present (GI), No Guarding due to palpation present (GI) and Yes No hepatosplenomegaly present Extremity: COMMON NORMALS: normal to inspection, capillary refill normal, no clubbing, cyanosis or edema, no calf tenderness and no pedal edema Neuro: SENSORIUM/ORIENTATION: Yes oriented to person, Yes oriented to place and Yes oriented to time Skin: OTHER: Patient has 1 open lesion full-thickness it is no longer draining and the left axilla has 2 lesions in the left axilla that seem to be defervesced seeing they are mildly tender to the touch not reddened or inflamed at this time no active drainage Course Vital Signs: Vital signs: Vital Signs Temperature 97.5 F L 10/23/25 11:48 Pulse Rate 75 10/23/25 14:31 Respiratory Rate 16 10/23/25 11:55 Blood Pressure 155/93 10/23/25 14:31 Pulse Oximetry 95 10/23/25 14:31 Oxygen Delivery Me thod Room Air 10/23/25 11:48 MDM - Skin/Abscess/Foreign Bdy Medicial Decision Making Medical decision making Social determinants: None I reviewed the patient's medical record. I reviewed the patient's current home meds. Alternate historians: None Differential diagnosis: Abscesses versus suppurative hidradenitis Lab Review: CBC normal Imaging: None Assessment of risk Level of risk: Low Hospitalization considerations: Hospitalization not considered no acute infection at this time Reexamination: Unchanged Assessment and plan: Suppurative hidradenitis. Patient has already had 1 open spontaneously injury and the other 2 appear to be defervesced thing. Incision and drainage not indicated. He has seen dermatology in the past he has had these multiple times. Will start him on topical clindamycin. Chlorhexidine washes to the axilla and groin. He has used this regimen in the past. Advised him to be careful with chlorhexidine around the open wounds that would cause significant discomfort. Should follow-up with his primary care doctor for referral to dermatology for further long-term care plans. Considered adding doxycycline for him anti-inflammatory effect however the 2 noted lesions are improving at this time and the third lesions are already open and draining. Lab Data 10/23/25 12:03 Laboratory Results WBC 5.67 10^3/uL (3.29-11.43) 10/23/25 12:03 RBC 4.36 10^6/uL (3.85-5.65) 10/23/25 12:03 Hgb 13.70 g/dL (11.27-16.99) 10/23/25 12:03 Hct 40.1 % (37-53) 10/23/25 12:03 MCV 92.0 fl (82-101) 10/23/25 12:03 MCH 31.4 pg (27-33) 10/23/25 12:03 MCHC 34.2 g/dL (30-55) 10/23/25 12:03 RDW 11.9 % (12.1-15.1) L 10/23/25 12:03 Plt Count 207 10^3/cmm (157-399) 10/23/25 12:03 MPV 11.3 fL (7.4-10.4) H 10/23/25 12:03 Neut % (Auto) 62.5 % 10/23/25 12:03 Lymph % (Auto) 26.3 % 10/23/25 12:03 [place] % (Auto) 7.1 % 10/23/25 12:03 Eos % (Auto) 2.5 % 10/23/25 12:03 Baso % (Auto) 0.5 % 10/23/25 12:03 Neut # (Auto) 3.55 10^3/uL (1.8-7.7) 10/23/25 12:03 Lymph # (Auto) 1.5 10^3/uL (0.8-4.8) 10/23/25 12:03 [place] # (Auto) 0.4 10^3/uL (0.2-0.9) 10/23/25 12:03 Eos # (Auto) 0.1 10^3/uL (0.0-0.8) 10/23/25 12:03 Baso # (Auto) 0.0 10^3/uL (0.0-0.1) 10/23/25 12:03 Nucleated RBC % (auto) 0 % 10/23/25 12:03 Nucleated RBCs # 0.0 /100WBC 10/23/25 12:03 No radiology studies performed this visit Discharge Plan Discharge Patient Disposition: Home Clinical Impression: Suppurative hidradenitis Condition: Stable Prescriptions: New clindamycin phosphate 1 % gel, once daily 1 applic topical DAILY Qty: 75 0RF ChloraPrep Clear 2-70 % solution 30 ml topical DAILY Qty: 262.5 0RF No Action (DME) Custom Molded Orthotics with Boots See Rx Instructions .Route .MEDSUPPLY Qty: 1 0RF Rx Instructions: As directed J P & O omeprazole 40 mg capsule,delayed release(DR/EC) 40 mg PO BID clindamycin phosphate 1 % lotion 1 applic topical DAILY Qty: 60 3RF Rx Instructions: Apply thin film to affected area 1-2 times daily. (DME) medial brick unloader tender brace, right See Rx Instructions .Route .MEDSUPPLY Qty: 1 0RF Rx Instructions: As directed meloxicam 15 mg tablet 15 mg PO DAILY Qty: 30 0RF diclofenac sodium [Voltaren Arthritis Pain] 1 % gel 4 g topical QID Qty: 100 1RF Rx Instructions: apply to single shoulder, knee, ankle, foot; for foot includes sole/toes/top of foot. prednisone 10 mg tablet 10 mg PO DAILY Qty: 42 0RF (DME) gloves See Rx Instructions .Route .MEDSUPPLY Qty: 1 0RF Rx Instructions: As directed capsaicin [Capzasin-HP] 0.1 % cream 1 applic topical DAILY Qty: 60 5RF Rx Instructions: do not wash area for at least 30 min after application (DME) 2 pair of custom accommodative insoles See Rx Instructions .Route .MEDSUPPLY Qty: 1 0RF Rx Instructions: As directed By [facility] (DME) 2 pair of 511 Tactical Boots See Rx Instructions .Route .MEDSUPPLY Qty: 1 0RF Rx Instructions: As directed by [facility] cyanocobalamin (vitamin B-12) [Vitamin B-12] 1,000 mcg Tablet 1,000 mcg PO DAILY thiamine HCl (vitamin B1) [Vitamin B-1] 100 mg Tablet 100 mg PO DAILY montelukast 10 mg Tablet 10 mg PO QPM rosuvastatin 20 mg Tablet 10 mg PO QPM Discharge Orders: Discharge ED (Routine); Ordered 10/23/25 Ordered By: Clifford Lang Referrals: Claudia Bacon FNP [Primary Care Provider, Nurse Practitioner] Patient Instructions: Opioid Safety, Pain Management, Patient Portal & [place] Instructions Activity Restrictions/Additional Instructions: Thank you for choosing [facility] for your healthcare needs today. It is very important that you follow up as instructed or that you return to the Emergency Department should you have concerns or if your condition changes or worsens in any way. Emergency department visits are focused on emergent conditions, in some cases you may require further evaluation on an outpatient basis. You were seen in the emergency room with some lesions in the left axilla. These are called superlative hidradenitis. These are inflammatory and not infectious. We do not typically incise and drain these. The open wound that is draining you can apply topical antibiotic ointment to as well as overlying the other ones clean the closed ones with the chlorhexidine do not get the chlorhexidine in the open wound that is as it does have some alcohol and it. Recommend you follow-up with dermatology clinic if you have not previously seen a automatic grinder operator discussed your primary care doctor being referred to 1. (Please note that included in your discharge packet is information concerning opioid safety and pain management. This information is given to all patients were discharged from the ER regardless of their discharge diagnosis or the medicines they usually take or are prescribed.) Print Language: Yakut Coding Level of Care Code ED Range Mechanic for Hillary Frances
--- OUTSIDE RECORDS SUMMARY | 2025-10-23 12:44 | XMS_ITS | Clinical Summary ---
Author Organization [facility] Address [address] [place] [address] Phone Care Team Providers Care Manager Diesel Name Role Phone Claudia Bacon [facility] [place] Primary Care Provi martha Allergies No known active allergies Medications rosuvastatin (Crestor) 20 mg tablet Take 20 mg by mouth 1 (one) time each day. Active omeprazole (PriLOSEC) [address] capsule Take 40 mg by mouth 2 (two) times a day. Do not crush or chew. Active thiamine (Vitamin B-1) 100 mg tablet Take 100 mg by mouth 1 (one) time each day. Active cyanocobalamin (Vitamin B-12) 1,000 mcg tablet Take 1,000 mcg by mouth 1 (one) time each day. Active ibuprofen (Advil,Motrin) 800 mg tablet Take 800 mg by mouth 2 (two) times a day if needed for mild pain (1-3). Active [id number] sb-C (MoviPrep) 100-7.5-2.691 gram powder in packet Take as directed in clinic 1 packet 3 Active bisacodyL (Dulcolax) 5 mg EC tablet Take 4 tablets (20 mg total) by mouth See administration instructions. Do not crush, chew, or split. 4 tablet 3 Active Active Problems Problem Noted Date Diagnosed Date Personal history of colonic polyps 07/12/2023 Overview (08/29/2024): 08/22/2024 regulatory import History of Rodriguez's esophagus 07/12/2023 Abdominal bloating 07/12/2023 Pain of upper abdomen 07/12/2023 Family History Medical History Relation Comments No Known Problems Father Stroke Mother Cancer Sister Anesthesia problems Neg Hx Diabetes Neg Hx Heart disease Neg Hx Relation Status Comments Father Alive Mother Alive Sister Social History Tobacco Use Types Packs/Day Years Used Date Smoking Tobacco: Every Day Cigarettes 1.5 15 Smokeless Tobacco: Never Tobacco Cessation:Ready to Q uit: Not Asked; Counseling Given: Not Answered Alcohol Use Standard Drinks/Week Comments Yes 8 (1 standard drink = 0.6 oz pur e alcohol) 8 beer daily PHQ-2 Answer Date Recorded Patient Health Questionnaire-2 Score 0 07/12/2023 Sex and Gender Information Value Date Recorded Sex Assigned at Not on file Legal Sex Male 11:05 AM CDT Gender Identity Not on file Sexual Orientation Not on file Last Filed Vital Signs Vital Sign Reading Time Taken Comments Blood Pressure 134/90 07/12/2023 1:21 PM CDT Pulse 73 07/12/2023 1:21 PM CDT Temperature 36.3 C (97.4 F) 07/12/2023 1:21 PM CDT Respiratory Rate - - Oxygen Saturation - - Inhaled Oxygen Concentration - - Weight 116 kg (255 lb) 08/13/2023 8:58 AM CDT Height 193 cm (6' 4 ) 08/13/2023 8:58 AM CDT Body Mass Index 31.04 08/13/2023 8:58 AM CDT Plan of Treatment Health Maintenance Due Date Last Done Comments CT Colonography 1966 Creatinine Level 1966 FIT-DNA 1966 FIT 1966 FOBT 1966 Lipid Panel 1966 Potassium Level 1966 Sigmoidoscopy 1966 MMR Vaccines (1 of 1 - Standard series) 1967 Varicella Vaccines (1 of 2 - 13+ 2-dose series) 1979 Depression Screening 1984 Social Drivers of Health (SDoH) 1984 Hepatitis B Vaccines (1 of 3 - 19+ 3-dose series) 1985 IPV Vaccines (2 of 3 - Adult catch-up series) 01/20/2000 12/23/1999 COVID-19 Vaccines ( season) 2025 Influenza Vaccine (#1) 2025 , 08/17/2019, 10/08/2017, Additional history exists Colonoscopy 10/23/2029 10/23/2019, 12/2018, 10/11/2019 Colorectal Cancer Screening 10/23/2029 DTaP,Tdap,and Td Vaccines (5 - Td or Tdap) 06/11/2031 06/11/2021, 07/26/2018, 07/31/2009, Additional history exists RSV Vaccines (1 - 1-dose 75+ series) 2041 Zoster Vaccines Completed 05/19/2022, 06/11/2021 Pneumococcal Vaccines: 50+ Years Completed 06/03/2023, 06/11/2021, 12/18/2015 HIB Vaccines Aged Out No longer eligi ble based on patient's age to complete this topic HPV Vaccines Aged Out No longer eligi ble based on patient's age to complete this topic Hepatitis A Vaccines Aged Out No long er eligible based on patient's age to complete this topic Meningococcal B Vaccine Aged Out No l onger eligible based on patient's age to complete this topic Meningococcal Vaccine Aged Out No trevor tina eligible based on patient's age to complete this topic Rotavirus Vaccines Aged Out No longer eligible based on patient's age to complete this topic [place] [address] [place] [address] [employer] Care Teams Manager Diesel Relationship Specialty Start Date End Date Claudia Bacon FNP [address] [phone] PCP - General Family Medicine 06/16/21
--- OUTSIDE RECORDS SUMMARY | 2025-10-23 12:44 | XMS_ITS | Clinical Summary ---
Author Organization [facility] Address [address] [place]: Epic Prelude ADT SARAI AVILA [address] Care Team Providers Care Sharepoint Developer Name Role Phone Claudia Bacon Primary Care Provi martha Allergies No known active allergies Medications omeprazole (PriLOSEC) 40 mg Capsule, Delayed Release(E.C.) Take 40 mg by mouth 2 times daily. 1 Active ibuprofen (MOTRIN) 800 mg tablet Take 800 mg by mouth 2 times daily. 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 0 Active calcium as carbonate (TUMS ES) 750 mg (300 mg elemental) Tablet, Chewable Take by mouth 1 time daily as needed. 0 Active Active Problems Problem Noted Date Diagnosed Date S/P cervical spinal fusion 06/13/2020 Obstructive sleep apnea 05/13/2020 Anxiety 05/13/2020 Tobacco use 05/13/2020 Gastroesophageal reflux disease without esophagi tis 05/13/2020 Cervical myelopathy 05/13/2020 Preoperative general physical examination 2019 Essential hypertension 05/13/2020 Allergic rhinitis 05/13/2020 Elevated serum creatinine 05/13/2020 Family History Medical History Relation Name Comments Healthy Daughter 1 Healthy Daughter 2 Healthy Father Healthy Mother Stroke Mother Other Sister 1 Breast Cancer Sister 2 Healthy Son Relation Name Status Comments Daughter 1 Alive Daughter 2 Alive Father Alive Mother Alive Sister 1 Alive Sister 2 Alive Son Alive Social History Tobacco Use Types Packs/Day Years Used Date Smoking Tobacco: Every Day Cigarettes Smokeless Tobacco: Never Comments:Quit smoking: Tryin g to cut back Alcohol Use Standard Drinks/Week Comments Yes 0 (1 standard drink = 0.6 oz pur e alcohol) Sex and Gender Information Value Date Recorded Sex Assigned at Not on file 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 Gender Identity Not on file Sexual Orientation Not on file Last Filed Vital Signs Vital Sign Reading Time Taken Comments Blood Pressure 138/88 02/16/2022 1:31 PM CDT Pulse 78 02/16/2022 1:31 PM CDT Temperature 36.9 C (98.4 F) 04/24/2021 11:32 AM CDT Respiratory Rate 18 06/13/2020 4:13 AM CDT Oxygen Saturation - - Inhaled Oxygen Concentration - - Weight 107.8 kg (237 lb 9.6 oz) 02/16/2022 1:31 PM CDT Height 193 cm (6' 4 ) 02/16/2022 1:31 PM CDT Body Mass Index 28.92 02/16/2022 1:31 PM CDT Plan of Treatment Health Maintenance Due Date Last Done Comments DTAP/TDAP/TD VACCINES (1 - Tdap) 1985 HEPATITIS B VACCINES (1 of 3 - 19+ 3-dose series) 1985 02/14/2006, 06/11/2005, 02/17/2005 COLORECTAL SCREENING 2011 Colorectal Cancer Screening 2011 FIT-DNA Q 3 years 2011 FIT/FOBT Q 1 year 2011 Flex Sig/CT Colonography Q 5 years 2011 ZOSTER VACCINE (1 of 2) 2016 INFLUENZA VACCINE (#1) 2025 10/05/2007 Medical Devices Implanted Type Area Wet Inspector Optical Glass Device Identifier Shelf Expiration Date Model / Serial / Lot Hemostatic Surgifoam 1gm 1977 - [id number] Implanted: by Heydi Ortiz MD (Quantity not on file) Hemostatic N/A: Neck [employer] [id number] 08/21/20211977 197748 Plate Zevo Ac 2lvl Ti 37mm [id number] - [id number] Implanted:Qty : 1 on 06/12/2020 by Heydi Ortiz MD Plate N/A: Neck [employer] SOFAMOR DANEK 06/21/2021 [id number] / / [id number] Screw Zevo Va Sd 3.5x15mm [id number] - [id number] Implanted:Qty : 1 on 06/12/2020 by Heydi Ortiz MD Screw N/A: Neck [employer] 06/21/2021 [id number] / / [id number] Screw Zevo Va Sd 3.5x17mm [id number] - [id number] Implanted:Qty : 5 on 06/12/2020 by Heydi Ortiz MD Screw N/A: Neck [employer] SOFAMOR [employer]ANEK 06/21/2021 [id number] / / [id number] Spacer Peek Anatomic [id number] - [id number] Implanted:Qty : 1 on 06/12/2020 by Heydi Ortiz MD Spacer N/A: Neck [employer] [id number] 12/06/2027 [id number] / / [id number] Spacer Peek Anatomic [id number] - [id number] Implanted:Qty : 1 on 06/12/2020 by Heydi Ortiz MD Spacer N/A: Neck [employer] [id number] 12/06/2027 [id number] / / [id number] Paste Bone Dbm Plus 1ml [id number] - [id number] Implanted:Qty : 1 on 06/12/2020 by Heydi Ortiz MD Tissue N/A: Neck 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 [facility] [id number] 12/11/2021 [id number] / / [id number] Explanted Type Area Wet Inspector Optical Glass Device Identifier Shelf Expiration Date Model / Serial / Lot Pin Holding Zevo Plate [id number] - [id number] Implanted:Qty: 1 Explanted:Qty: 1 on 06/12/2020 Plate N/A: Neck [employer] 06/21/2021 [id number] / / [id number] Screw Zevo Va Sd 3.5x17mm [id number] - [id number] Implanted:05/23 by Heydi Ortiz MD (Quantity not on file) Explanted:Qty: 1 on 06/12/2020 by Heydi Ortiz MD Screw N/A: Neck [employer] 06/21/2021 [id number] / / [id number] Insurance * Guarantor: DAVI BASS Account Type Relation to Patient Date of Phone Billing Address Personal/Family [address] [place] [id number] RX [employer] RX Member Subscriber Plan / Payer (Ef fective for All Dates) Name:Davi Bass Relation to Subscriber:Self Name:Davi Bass Payer ID:Not on file Type:RX Commercial Address: [place] [employer] [facility] [employer] Care Teams Sharepoint Developer Relationship Specialty Start Date End Date Claudia Bacon FNP [address] [place] [id number] PCP - General NURSE PRACTITIONER 05/13/20
--- OUTSIDE RECORDS SUMMARY | 2025-10-23 12:44 | XMS_ITS | Clinical Summary ---
Author Organization [facility] Address [address] [place] [address] Care Team Providers Care Analytics Leader Name Role Phone Opal Baconerinnaima De La Torre [facility] Primary Care Provi martha Allergies No known active allergies Medications fluticasone propionate (FLONASE) 50 mcg/spray [place], Suspension nasal inhaler Administer 2 Sprays in each nostril daily contact lens blocker. Active calcium as carbonate (TUMS ES) 750 mg (300 mg elemental) Tablet, Chewable Take by mouth 1 time daily as needed. Active omeprazole (PriLOSEC) 40 mg Capsule, Delayed Release(E.C.) Take 40 mg by mouth 2 times daily. Active ibuprofen (MOTRIN) 800 mg tablet Take 800 mg by mouth 2 times daily. Active Active Problems Problem Noted Date Diagnosed Date S/P cervical spinal fusion 06/13/2020 Preoperative general physical examination 2019 Obstructive sleep apnea 05/13/2020 Essential hypertension 05/13/2020 Gastroesophageal reflux disease without esophagi tis 05/13/2020 Anxiety 05/13/2020 Allergic rhinitis 05/13/2020 Cervical myelopathy 05/13/2020 Tobacco use 05/13/2020 Elevated serum creatinine 05/13/2020 Family History Medical History Relation Name Comments Healthy Daughter 1 Healthy Daughter 2 Healthy Father Healthy Mother Other Sister 1 Breast Cancer Sister 2 Healthy Son Relation Name Status Comments Daughter 1 Alive Daughter 2 Alive Father Alive Mother Alive Sister 1 Alive Sister 2 Alive Son Alive Social History Tobacco Use Types Packs/Day Years Used Date Smoking Tobacco: Every Day Cigarettes 0.5 35 Smokeless Tobacco: Never Comments:Trying to cut back Alcohol Use Standard Drinks/Week Comments Yes 0 (1 standard drink = 0.6 oz pur e alcohol) 2 beers monthly Sex and Gender Information Value Date Recorded Sex Assigned at Not on file Legal Sex Male 7:47 AM CDT Gender Identity Not on file Sexual Orientation Not on file Last Filed Vital Signs Vital Sign Reading Time Taken Comments Blood Pressure 134/90 04/24/2021 11:32 AM CDT Pulse 74 04/24/2021 11:32 AM CDT Temperature 36.9 C (98.4 F) 04/24/2021 11:32 AM CDT Respiratory Rate 18 06/13/2020 4:13 AM CDT Oxygen Saturation 97% 04/24/2021 11:32 AM CDT Inhaled Oxygen Concentration - - Weight 106.6 kg (235 lb) 04/24/2021 11:32 AM CDT Height 193 cm (6' 4 ) 04/24/2021 11:32 AM CDT Body Mass Index 28.61 04/24/2021 11:32 AM CDT Plan of Treatment Health Maintenance Due Date Last Done Comments HEPATITIS B VACCINES (1 of 3 - 19+ 3-dose series) 1985 02/14/2006 COLORECTAL SCREENING 2011 Colorectal Cancer Screening 2011 FIT-DNA Q 3 years 2011 FIT/FOBT Q 1 year 2011 Flex Sig/CT Colonography Q 5 years 2011 ZOSTER VACCINE (1 of 2) 2016 INFLUENZA VACCINE (#1) 2025 0, 10/08/2017, 10/05/2007 DTAP/TDAP/TD VACCINES (2 - T d or Tdap) 07/26/2028 07/26/2018 Medical Devices Implanted Type Area Rolled Glass Crosscutter Device Identifier Shelf Expiration Date Model / Serial / Lot Hemostatic Surgifoam 1gm 1976 - [id number] Implanted:05/23 by Heydi Ortiz MD at [facility] (Quantity not on file) Hemostatic N/A: Neck [employer] [id number] 08/21/20211977 455795 Plate Zevo Ac 2lvl Ti 37mm [id number] - [id number] Implanted:Qty: 1 on 06/12/2020 by Heydi Ortiz MD at [facility] Plate N/A: Neck [employer] SOFAMOR DANEK 06/21/2021 [id number] / / [id number] Screw Zevo Va Sd 3.5x17mm [id number] - [id number] Implanted:Qty: 5 on 06/12/2020 by Heydi Ortiz MD at [facility] Screw N/A: Neck [employer] 06/21/2021 [id number] / / [id number] Screw Zevo Va Sd 3.5x15mm [id number] - [id number] Implanted:Qty: 1 on 06/12/2020 by Heydi Ortiz MD at [facility] Screw N/A: Neck [employer]FAMOR [employer]ANEK 06/21/2021 [id number] / / [id number] Spacer Peek Anatomic [id number] - [id number] Implanted:Qty: 1 on 06/12/2020 by Heydi Ortiz MD at [facility] Spacer N/A: Neck [employer]K [id number] 12/06/2027 [id number] / / [id number] Spacer Peek Anatomic [id number] - [id number] Implanted:Qty: 1 on 06/12/2020 by Heydi Ortiz MD at [facility] Spacer N/A: Neck [employer] [id number] 12/06/2027 [id number] / / [id number] Paste Bone Dbm Plus 1ml [id number] - [id number] Implanted:Qty: 1 on 06/12/2020 by Heydi Ortiz MD at [facility] Tissue N/A: Neck [employer] [id number] 12/11/2021 [id number] / / [id number] Explanted Type Area Rolled Glass Crosscutter Device Identifier Shelf Expiration Date Model / Serial / Lot Pin Holding Zevo Plate [id number] - [id number] Implanted:Qty: 1 Explanted:Qty: 1 on 06/12/2020 at [facility] Plate N/A: Neck [employer]FAM[employer]ANE[employer] 06/21/2021 [id number] / / [id number] Screw Zevo Va Sd 3.5x17mm [id number] - [id number] Implanted:2019 by Heydi Ortiz MD (Quantity not on file) Explanted:Qty: 1 on 06/12/2020 by Heydi Ortiz MD at [facility] Screw N/A: Neck [employer] SOFAMOR DANEK 06/21/2021 [id number] / / [id number] Insurance RX [employer] RX Member Subscriber Plan / Payer (Ef fective for All Dates) Name:Davi Cobos Relation to Subscriber:Self Name:Davi Cobos Payer ID:Not on file Type:RX Commercial Address: [address] [place] [facility] CC[facility] [employer] Advance Directives For more information, please contact: [phone] * Full Code (Latest Code Status on File) Date Activated Date Inactivated Comments 06/12/2020 12:33 PM 06/13/2020 12:39 PM Care Teams Analytics Leader Relationship Specialty Start Date End Date Claudia Bacon FNP [address] [place] [address] PCP - General NURSE PRACTITIONER 05/13/20
[2025-10-23 14:31] VITALS: BP 155/93; PULSE 75; O2SAT 95
== END 2025-10-23 14:33 | disposition home or self-care (01) ==
PROVIDERS: Emergency Provider Family Medicine; PCP Nurse Practitioner
DX: L73.2 Hidradenitis suppurativa (principal); E78.5 Hyperlipidemia, unspecified; I10 Essential (primary) hypertension
CPT/HCPCS: 36415; 85025; 99283

== ENCOUNTER → 2025-10-25 14:10 | Outpatient (BNVA) | payer OTHER, SELFPAY | PROVIDERS: PCP Nurse Practitioner; Visit Provider Nurse Practitioner Family | DX: S41.102A Unspecified open wound of left upper arm, initial encounter (principal); L02.412 Cutaneous abscess of left axilla; X58.XXXA Exposure to other specified factors, initial encounter | CPT/HCPCS: 11900; 99213 ==

== ENCOUNTER → 2025-10-31 09:14 | Outpatient (BNVA) | payer OTHER, SELFPAY | PROVIDERS: PCP Nurse Practitioner; Visit Provider Nurse Practitioner Family | DX: L02.412 Cutaneous abscess of left axilla (principal) | CPT/HCPCS: 11900; 99214 ==

== ENCOUNTER → 2025-11-14 08:29 | Outpatient (BNVA) | payer OTHER, SELFPAY | PROVIDERS: PCP Nurse Practitioner; Visit Provider Nurse Practitioner Family | DX: L02.412 Cutaneous abscess of left axilla (principal) | CPT/HCPCS: 99213 ==